=== PATIENT | male | born 1985 | race Caucasian/White ===

== ENCOUNTER 2024-08-19 06:21 | Day surgery (SDC) | payer OTHER, SELFPAY | END 2024-08-19 10:52 | disposition home or self-care (01) | LOC: GI 06:21 | PROVIDERS: ATTENDING PHYSICIAN Specialist | DX: K50.80 Crohn's disease of both small and large intestine without complications (principal); K63.5 Polyp of colon | CPT/HCPCS: 45385; 45380; 88305 ==